=== PATIENT | female | born 1935 | race Caucasian/White ===

== ENCOUNTER 2017-02-04 16:40 | Emergency (ER) | payer MEDICARE ==
[~2017-02-04] VITALS: Ht 167.6 cm; Wt 68.0 kg
--- NOTE | 2017-02-04 18:18 | NUR ---
Patient discharged to home in stable conditon with caregiver. Written and verbal after care instructions given. Patient verbalizes understanding of instructions. Stressed follow up with pmd or return to ER for worsening s/s.
== END 2017-02-04 18:20 | disposition home or self-care (01) ==
LOC: ER 16:40
DX: S20.219A Contusion of unspecified front wall of thorax, initial encounter (principal); Z88.2 Allergy status to sulfonamides; Z88.0 Allergy status to penicillin; W19.XXXA Unspecified fall, initial encounter; Y93.9 Activity, unspecified; Y99.9 Unspecified external cause status; Y92.9 Unspecified place or not applicable
CPT/HCPCS: 71020; 71120; 99284; A4663

== ENCOUNTER 2017-10-07 12:39 | Emergency (ER) | payer MEDICARE ==
[~2017-10-07] VITALS: Ht 165.1 cm; Wt 61.2 kg
[2017-10-07] MEDS ORDERED: TRAZODONE HCL 50 MG TABS (13:02)
[2017-10-07] MEDS ORDERED: METFORMIN 500MG TABLETS PO (13:02)
[2017-10-07] MEDS ORDERED: NITROFURANTOIN MONOHYDRATE (13:02)
[2017-10-07] MEDS ORDERED: LOSARTAN POTASSIUM 50 MG TABS (13:02)
[2017-10-07] MEDS ORDERED: VITAMIN D3 (13:02)
[2017-10-07] MEDS ORDERED: PROAIR HFA 108 MCG/ACT AERS (13:02)
[2017-10-07] MEDS ORDERED: GABAPENTIN 300 MG CAPS (13:02)
[2017-10-07] MEDS ORDERED: GLIMEPIRIDE 1 MG (13:02)
[2017-10-07] MEDS ORDERED: [UNRECOGNIZED DRUG - OTHER] (13:02)
--- NOTE | 2017-10-07 13:53 | NUR ---
Patient discharged to home in stable conditon. Written and verbal after care instructions given to patient. Patient verbalizes understanding of instructions.
== END 2017-10-07 13:54 | disposition home or self-care (01) ==
LOC: ER 12:40
DX: E11.42 Type 2 diabetes mellitus with diabetic polyneuropathy (principal); E78.5 Hyperlipidemia, unspecified; Z88.0 Allergy status to penicillin; Z79.84 Long term (current) use of oral hypoglycemic drugs; Z79.891 Long term (current) use of opiate analgesic; Z79.899 Other long term (current) drug therapy; Z88.2 Allergy status to sulfonamides
CPT/HCPCS: A4663